=== PATIENT | female | born 1950 | race Two or more races ===

== ENCOUNTER 2025-07-22 06:17 | Emergency (ER) | payer OTHER ==
[~2025-07-22] VITALS: Ht 165.1 cm; Wt 63.5 kg
[2025-07-22] MEDS ORDERED: LEVO-T25 MCG PO (06:24)
[2025-07-22] MEDS ORDERED: 0.9 % SODIUM CHLORIDE 1,000 ML IV ONE (06:30)
[2025-07-22] MEDS ORDERED: ONDANSETRON HCL 2 MG/ML VIAL IV ONE (06:30)
[2025-07-22] MEDS ORDERED: FAMOtidine 10 MG/ML (4ML VIAL) IV ONE (06:30)
[2025-07-22 07:03] LABS: BASO % 1.2 % (0.1-1.2); EOS # 0.20 (0.04-0.54); EOS % 2.5 % (0.7-7.0); LYMPH # 3.39 (1.18-3.74); LYMPH % 42.3 % (19.3-53.1); MEAN PLATELET VOLUME 9.20 fl (9.4-12.4); MONO # 0.54 (0.24-0.82); MONO % 6.7 % (4.7-12.5); NEUT # 3.72 (1.56-6.13); NEUT % 46.4 % (34.0-71.1); RED CELL DISTRIBUTION WIDTH 13.2 % (11.6-14.4)
[2025-07-22 07:24] LABS: INR 0.98
[2025-07-22 07:49] LABS: ALT/SGPT 16.0 U/L (12-78); AST/SGOT 17.0 U/L (15-37); BILIRUBIN TOTAL 0.49 mg/dL (0.3-1.2); BUN CREA RATIO 25.0 (7.0-25.0); CREATININE SERUM 0.64 mg/dL (0.55-1.02); GFR 90.96; GLOBULINA 3.8 G/DL (2.4-3.5); GLUCOSE FASTING 148.0 mg/dL (65-100); OSMOLALITY SERUM 287.0 MOSM/KG (275-295)
[2025-07-22] MEDS ORDERED: MECLIZINE HCL 25 MG TABLET PO ONE (10:30)
[2025-07-22] MEDS ORDERED: DEXAMETHASONE SODIUM PHOSPHATE 4 MG/ML VIAL IV ONE (10:30)
[2025-07-22] MEDS ORDERED: PROMETHAZINE HCL 50 MG/ML AMPUL IM ONE (11:15)
[2025-07-22] MEDS ORDERED: POTASSIUM BICARBONATE/CIT AC 25 MEQ TABLET.EFF PO ONE (11:30)
[2025-07-22] MEDS ORDERED: ZOFRAN8 MG PO (13:03)
[2025-07-22] MEDS ORDERED: MOTION SICKNESS25 M2 PO (13:03)
[2025-07-22] MEDS ORDERED: PROTONIX20 MG PO (13:03)
== END 2025-07-22 13:27 | disposition home or self-care (01) ==
LOC: ER 06:17
PROVIDERS: General Practice
DX: K52.89 Other specified noninfective gastroenteritis and colitis (principal); E03.9 Hypothyroidism, unspecified; R42 Dizziness and giddiness
CPT/HCPCS: 36415; 96365; 96366; 96372; 99282; J1100; J2250; J2405; J3490; J7030